=== PATIENT | male | born 1990 | race Two or more races ===

== ENCOUNTER 2016-12-17 13:09 | Emergency (ER) | payer OTHER ==
[~2016-12-17] VITALS: Ht 157.5 cm; Wt 56.7 kg
[2016-12-17 13:19] VITALS: BP 113/76
[2016-12-17] MEDS ORDERED: Morphine Sulfate 4mg/ml Inj IM ONE (13:30)
[2016-12-17] MEDS ORDERED: Ketorolac 60mg Inj IM ONE (13:30)
--- NOTE | 2016-12-17 13:34 | Emergency Room Report ---
History of Present Illness General Chief Complaint: Lower Back Pain or Injury Source: EMS Present Illness HPI 26-year-old male presents emergency department complaining of 10 out of 10 in severity low back pain x3 weeks. Patient states that he has a history of slipped disc and had a discectomy performed. he states that 3 weeks ago he injured his back again and the disc slipped more according to his panel surgeon. Patient states that he is been having epidural injections performed and has a followup appointment on Tuesday as he may require repeat surgery. Patient denies fevers, chills, or erythema . PT. states his pain radiates across his low back and he feels "cramping" pt. states his back "locked-up" on him first on the right side yesterday morning, and then both sides upon awakening this am. Denies weakness, changes in sensation to the lower extremities, or incontinence. He since states that his doctor prescribed him Vicodin and soma. Patient states he last took both at 4 in the morning when he awoke with pain. Denies CP, Palpitations, LOC, AMS, dizziness, Changes in Vision , Sensation, paresthesias, or a sudden severe headache. Allergies: Coded Allergies: No Known Allergies (Unverified , 12/17/16) Patient History Past Medical History: see triage record Past Surgical History: none Pertinent Family History: none Reviewed Nursing Documentation: PMH: Agreed, PSxH: Agreed Nursing Documentation-PMH Past Medical History: No History, Except For Hx Hypertension: No - BACK INJUIRY 2016 Review of Systems All Other Systems: negative except mentioned in HPI Physical Exam Vital Signs Date Time Temp Pulse Resp B/P Pulse Ox O2 Delivery O2 Flow Rate FiO2 12/17/16 13:06 98.1 80 20 113/76 100 Room Air Sp02 EP Interpretation: reviewed, normal General Appearance: no apparent distress, alert, GCS 15, non-toxic Head: normocephalic, atraumatic Eyes: bilateral eye PERRL, bilateral eye normal inspection ENT: hearing grossly normal, normal pharynx, no angioedema, normal voice Neck: full range of motion, supple/symm/no masses Respiratory: lungs clear, normal breath sounds, speaking full sentences Cardiovascular #1: regular rate, rhythm, no edema, normal capillary refill Cardiovascular #2: 2+ dorsalis pedis (R), 2+ dorsalis pedis (L) Genitourinary: no CVA tenderness Musculoskeletal: back normal, gait/station normal, normal range of motion, tender - midline and paraspinal ttp to the L-spine, no erythema, masses, or increased temperature to palpation, surgical scar noted to be non infected. Neurologic: alert, oriented x3, responsive, motor strength/tone normal, DTRs symmetric, sensory intact, speech normal, no Babinski Psychiatric: judgement/insight normal, memory normal, mood/affect normal Skin: normal color, no rash, warm/dry, well hydrated Medical Decision Making PA Attestation Dr. Chacko is my supervising Physician whom patient management has been discussed with. Diagnostic Impression: Primary Impression: Low back pain Qualified Codes: M54.41 - Lumbago with sciatica, right side; M54.42 - Lumbago with sciatica, left side; G89.29 - Other chronic pain Additional Impression: Exacerbation of chronic back pain ER Course 26-year-old male presents emergency department complaining of 10 out of 10 in severity low back pain x3 weeks. Patient states that he has a history of slipped disc and had a discectomy performed. he states that 3 weeks ago he injured his back again and the disc slipped more according to his panel surgeon. Patient states that he is been having epidural injections performed and has a followup appointment on Tuesday as he may require repeat surgery. Patient denies fevers, chills, or erythema . PT. states his pain radiates across his low back and he feels "cramping" pt. states his back "locked-up" on him first on the right side yesterday morning, and then both sides upon awakening this am. Denies weakness, changes in sensation to the lower extremities, or incontinence. He since states that his doctor prescribed him Vicodin and soma. Patient states he last took both at 4 in the morning when he awoke with pain. Denies CP, Palpitations, LOC, AMS, dizziness, Changes in Vision , Sensation, paresthesias, or a sudden severe headache. Ddx considered: epidural abscess, fracture, sprain/strain, meningitis, spinal chord injury. Vital signs reviewed and are WNL during ED visit. Pt. is afebrile with no signs of infection No new symptoms, and denies recent trauma. No saddle anesthesia noted, Pt. denies incontinence, weakness or paresthesias- epidural abscess, mass, or spinal chord injury is of low suspicious at this time. Neurovascular is intact ROM is limited due to pain * Mild Tenderness to palpation to paraspinal muscles of the lower back, spinous process tenderness, there is midline tenderness and a surgical scar noted. No erythema, no increased temperature to palpation. *Pt. describes pain today as severe and radiates across the lower back. ORDERS: none warranted at this time. INTERVENTIONS: - 40mg IM Toradol -6mg Morphine - Re-evaluation of pt. after interventions, pt. states his pain has improved significantly and is now sitting upright in gurney eating food. pt. requests to be d/c. D/W Pt. that for further pain management it is highly recommended to consult Spinal Specialist or a Chronic Pain management doctor. A provider who can safely prescribe controlled substances with close follow up. DISCHARGE: At this time pt. is stable for d/c to home with close outpatient follow up and appt. already scheduled for Tuesday with his surgeon. Will provide printed patient care instructions, and any necessary prescriptions. Care plan and follow up instructions have been discussed with the patient prior to discharge. Last Vital Signs Date Time Temp Pulse Resp B/P Pulse Ox O2 Delivery O2 Flow Rate FiO2 12/17/16 13:19 98.1 20 113/76 100 Room Air 12/17/16 13:06 80 Disposition: HOME, SELF-CARE Condition: Stable Scripts Ibuprofen* (MOTRIN*) 600 Mg Tablet 600 MG ORAL THREE TIMES A DAY, #20 TAB 0 Refills Prov: Madiha Pearson 12/17/16 Baclofen* (BACLOFEN*) 10 Mg Tablet 10 MG ORAL THREE TIMES A DAY for 3 Days, #10 TAB Prov: Madiha Pearson 12/17/16 Patient Instructions: Chronic Back Pain Additional Instructions: Take medications as directed. Follow up with PCP in 3-5 days Return sooner to ED if new symptoms occur, or current symptoms become worse. Do not drink alcohol, drive, or operate heavy machinery while taking Muscle Relaxers as this may cause drowsiness. - Please note that this Emergency Department Report was dictated using [employer] analysis manager technology software, occasionally this can lead to erroneous entry secondary to interpretation by the dictation equipment. Madiha Pearson Dec 17, 2016 13:34
[2016-12-17] MEDS ORDERED: BACLOFEN10 MG ORAL (14:15)
[2016-12-17] MEDS ORDERED: IBUPROFEN600 MG ORAL (14:15)
[2016-12-17 14:28] VITALS: BP 113/76
[2016-12-17 14:40] VITALS: BP 113/76
== END 2016-12-17 14:40 | disposition home or self-care (01) ==
LOC: EDSEX 13:09 → EDBD 13:09 → EMR 13:41
DX: M54.41 Lumbago with sciatica, right side (principal); M54.42 Lumbago with sciatica, left side; G89.29 Other chronic pain
CPT/HCPCS: 96372; 99284; J2270

== ENCOUNTER 2017-01-05 13:34 | Emergency (ER) | payer OTHER ==
[~2017-01-05] VITALS: Ht 167.6 cm; Wt 59.9 kg
[~2017-01-05 13:34] MED LIST: BACLOFEN10 MG ORAL; IBUPROFEN600 MG ORAL
[2017-01-05] MEDS ORDERED: Morphine Sulfate 4mg/ml Inj IVP ONE (14:15)
[2017-01-05] MEDS ORDERED: Morphine Sulfate 2mg/ml Inj IVP ONE (15:45)
[2017-01-05] MEDS ORDERED: Ketorolac 30mg Inj IV ONE (15:45)
[2017-01-05 15:54] VITALS: BP 133/88
[2017-01-05 19:15] VITALS: BP 133/88
--- NOTE | 2017-01-05 21:35 | Emergency Room Report ---
History of Present Illness General Chief Complaint: Back Pain-No Injury Source: EMS Present Illness HPI The patient is a 26 year old male with a history of disc herniation of the lumbar spine presenting for severe back pain. The patient was seen here in the past for same complaint. he denies any recent injury to the back. Pain is described as a 10 out of 10 sharp sensation to the mid lower back. Does not radiate. Worse with movement. He states that he has not been able to sleep due to the pain. He has used norco and soma at home which have not helped. He states that he has spine surgery tomorrow at [facility]. He denies any other symptoms including nausea, vomiting, fever, chills, numbness or tingling, incontinence Allergies: Coded Allergies: No Known Allergies (Unverified , 12/17/16) Patient History Past Medical History: see triage record Pertinent Family History: none Reviewed Nursing Documentation: PMH: Agreed, PSxH: Agreed Nursing Documentation-PMH Past Medical History: No History, Except For Hx Hypertension: No - BULGING L5 Review of Systems All Other Systems: negative except mentioned in HPI Physical Exam Vital Signs Date Time Temp Pulse Resp B/P Pulse Ox O2 Delivery O2 Flow Rate FiO2 01/05/17 13:35 97.9 111 18 133/88 99 Sp02 EP Interpretation: reviewed, normal General Appearance: alert, GCS 15, non-toxic, mild distress Head: normocephalic, atraumatic Eyes: bilateral eye PERRL, bilateral eye normal inspection Respiratory: chest non-tender, lungs clear, normal breath sounds, speaking full sentences Cardiovascular #1: regular rate, rhythm, no edema Gastrointestinal: normal bowel sounds, non tender, soft, non-distended, no guarding, no rebound Musculoskeletal: tender - TTP over midline lumbar spine Neurologic: alert, oriented x3, responsive, sensory intact Psychiatric: judgement/insight normal, memory normal, mood/affect normal, no suicidal/homicidal ideation Skin: normal color, no rash, warm/dry, well hydrated Medical Decision Making PA Attestation Dr. Cao is my supervising physician. Patient management was discussed with my supervising physician Diagnostic Impression: Primary Impression: Chronic low back pain Qualified Codes: M54.5 - Low back pain; G89.29 - Other chronic pain ER Course The patient is a 26 year old male with a history of disc herniation of the lumbar spine presenting for severe back pain Ddx considered include but not limited to lumbar strain, degenerative disease, epidural abscess, cauda equina, chronic pain, narcotic dependency, among others PE: afebrile. Mild distress due to pain There is tenderness to palpation over the distal midline lumbar spine. Surgical scar present. No step-offs. Sensation is intact of the inguinal region. Otherwise unremarkable exam The patient is given IV morphine and Toradol. Patient has decreased He is now resting comfortably. He'll be discharged. The patient has gotten in contact with a nurse from [facility]. They will be sending transport to take the patient to the hospital as he has surgery scheduled for tomorrow. Last Vital Signs Date Time Temp Pulse Resp B/P Pulse Ox O2 Delivery O2 Flow Rate FiO2 01/05/17 19:15 97.9 76 18 133/88 99 Status: improved Disposition: HOME, SELF-CARE Condition: Improved Patient Instructions: Back Pain, Adult Additional Instructions: I discussed my findings with the patient. All questions and concerns have been answered. Treatment and medication compliance have been addressed. I advised the patient that they need to follow up with PMD in 3-5 days. Return to ED if pain remains or worsens, numbness or tingling occurs, new rash is noticed, fever is noticed, or if needed for any reason. Patient verbalized understanding of discharge instructions. Please followup with your surgeon tomorrow as was discussed. MICHELE TRIMBLE Jan 05, 2017 21:35
== END 2017-01-05 19:16 | disposition home or self-care (01) ==
LOC: EDUNIT# 13:34 → EDBD 13:34 → EMR 14:33
DX: G89.29 Other chronic pain (principal); M51.26 Other intervertebral disc displacement, lumbar region
CPT/HCPCS: 96374; 96375; 99284; J1885; J2270; J2405